=== PATIENT | female | born 1995 | race Asian ===

== ENCOUNTER → 2023-11-30 | Outpatient (CLI) | payer OTHER ==
[2023-11-30 15:49] LABS: HEMATOCRIT 39.6 % (36.0-47.0); HEMOGLOBIN 13.1 g/dl (12.0-15.5); MEAN CORPUSCULAR HEMOGLOBIN 30.3 pg (27.0-33.0); MEAN CORPUSCULAR HGB CONC 33.1 g/dl (32.0-36.5); MEAN CORPUSCULAR VOLUME 91.7 fl (80.0-96.0); PLATELET COUNT, AUTOMATED 285 10^3/uL (150-450); RED BLOOD COUNT 4.32 10^6/uL (4.00-5.40); WHITE BLOOD COUNT 8.6 10^3/uL (4.0-10.0)
[2023-11-30 15:54] LABS: AMORPHOUS SEDIMENT SMALL (NEGATIVE); APPEARANCE, URINE CLOUDY (CLEAR); BACTERIA, URINE AUTO NEGATIVE (NEGATIVE); BILIRUBIN, URINE AUTO NEGATIVE (NEGATIVE); BLOOD, URINE BLOOD NEGATIVE (NEGATIVE); COLOR, URINE YELLOW (YELLOW); GLUCOSE, URINE (UA) AUTO NEGATIVE (NEGATIVE); KETONE, URINE AUTO NEGATIVE (NEGATIVE); LEUKOCYTE ESTERASE, URINE AUTO 2+ (NEGATIVE); MUCUS, URINE SMALL (NEGATIVE); NITRITE, URINE AUTO NEGATIVE (NEGATIVE); PROTEIN, URINE AUTO NEGATIVE (NEGATIVE); RBC, URINE AUTO 2 /HPF (0-3); SPECIFIC GRAVITY URINE AUTO 1.017 (1.002-1.035); SQUAMOUS EPITHELIAL CELL UR AU 14 /HPF (0-6); UROBILINOGEN, URINE AUTO 0.2 mg/dL (0.0-2.0); WBC, URINE AUTO 3 /HPF (0-3)
[2023-11-30 15:57] LABS: FREE T4 1.17 NG/DL (0.89-1.76); THYROID STIMULATING HORMONE 0.309 uIU/ML (0.55-4.78)
[2023-11-30 16:17] LABS: HEMOGLOBIN A1c 5.2 % (4.0-6.0)
[2023-11-30 16:33] LABS: HIV 1&2 SCREEN NEGATIVE (NEGATIVE)
[2023-11-30 16:40] LABS: HEPATITIS C VIRUS ABY INDEX < 0.02 INDEX (<0.8)
== END ==
LOC: M PLALAB 13:45
PROVIDERS: ATTEND Obstetrics & Gynecology Obstetrics
DX: Z34.81 Encounter for supervision of other normal pregnancy, first trimester (principal)

== ENCOUNTER → 2023-12-09 | Outpatient (CLI) | payer OTHER | LOC: M WHC 11:59 → EDUNIT# 12:00 | PROVIDERS: ATTEND Obstetrics & Gynecology Obstetrics | DX: Z34.81 Encounter for supervision of other normal pregnancy, first trimester (principal) ==

== ENCOUNTER → 2023-12-22 | Outpatient (CLI) | payer OTHER | LOC: M PLALAB 14:05 | PROVIDERS: ATTEND Obstetrics & Gynecology Obstetrics | DX: Z34.81 Encounter for supervision of other normal pregnancy, first trimester (principal) ==